=== PATIENT | male | born 1945 | race Caucasian/White ===

== ENCOUNTER → 2016-08-15 | Outpatient (CLI) | payer OTHER, BC ==
[2016-08-15 13:58] LABS: ALT/SGPT 31 U/L (12-78); BLOOD UREA NITROGEN 41 mg/dl (7-18); BUN/CREATININE RATIO 45.6 (10-20); CARBON DIOXIDE 22 mmol/L (21-32); CHLORIDE 107 mmol/L (98-107); CHOLESTEROL 175 mg/dl (0-200); GLUCOSE 146 mg/dl (70-99); SODIUM 139 mmol/L (136-145); TRIGLYCERIDES 97 mg/dl (0-150); VERY LOW DENSITY LIPOPROT CALC 19 mg/dl
[2016-08-15 14:02] LABS: ALB/GLOB RATIO 1.4 (0.9-2); ALKALINE PHOSPHATASE 71 U/L (45-117); AST/SGOT 17 U/L (15-37); CHOLESTEROL/HDL RATIO 3.4; HDL CHOLESTEROL 52 mg/dl; LDL CHOLESTEROL CALCULATED 104 mg/dl
[2016-08-15 14:12] LABS: ESTIMATED AVERAGE GLUCOSE 166 mg/dl; HA1C FLAG Normal (Normal)
[2016-08-15 15:10] LABS: CALCIUM 9.2 mg/dl (8.5-10.1)
== END | disposition home or self-care (01) ==
LOC: C.LABMFLN 08:44
PROVIDERS: ATTEND Family Medicine
DX: E11.40 Type 2 diabetes mellitus with diabetic neuropathy, unspecified (principal); E78.00 Pure hypercholesterolemia, unspecified; I10 Essential (primary) hypertension

== ENCOUNTER → 2016-12-23 | Outpatient (CLI) | payer OTHER, BC ==
[2016-12-23 13:52] LABS: BLOOD UREA NITROGEN 34 mg/dl (7-18); GLUCOSE 111 mg/dl (70-99)
[2016-12-23 13:53] LABS: ALT/SGPT 39 U/L (12-78); BUN/CREATININE RATIO 31.1 (10-20); CALCIUM 8.9 mg/dl (8.5-10.1); CARBON DIOXIDE 25 mmol/L (21-32); CHLORIDE 108 mmol/L (98-107); CHOLESTEROL < 50 mg/dl (0-200); POTASSIUM 4.9 mmol/L (3.5-5.1); SODIUM 139 mmol/L (136-145); TRIGLYCERIDES 76 mg/dl (0-150); URIC ACID 7.8 mg/dl (2.6-7.2); VERY LOW DENSITY LIPOPROT CALC 15 mg/dl
[2016-12-23 13:56] LABS: ALB/GLOB RATIO 1.2 (0.9-2); ALKALINE PHOSPHATASE 79 U/L (45-117); AST/SGOT 25 U/L (15-37); HDL CHOLESTEROL 54 mg/dl; RHEUMATOID FACTOR < 10.0 U/mL (0-15)
[2016-12-23 14:01] LABS: ESTIMATED AVERAGE GLUCOSE 163 mg/dl; HA1C FLAG Normal (Normal)
[2016-12-23 14:10] LABS: RATIO 5.4 mcg/mg (0-30.0)
[2016-12-23 14:27] LABS: BASO % 0.3 %; BASO ABS # 0.02 K/uL (0-0.2); COMPLETE YES; EOS % 4.1 %; IG% 0.2 %; LYMPH % 27.6 %; LYMPH ABS # 1.81 K/uL (1.2-3.4); MEAN CELL VOLUME 90.5 fL (80-100); MEAN CORPUSCULAR HEMOGLOBIN 31.3 pg (25-34); MEAN CORPUSCULAR HGB CONC 34.6 g/dl (32-36); MEAN PLATELET VOLUME 9.5 fL (7.4-10.4); MONO % 7.9 %; NEUT % 59.9 %; PLATELET COUNT 251 K/uL (130-400); RED BLOOD COUNT 4.09 M/uL (4.7-6.1); WHITE BLOOD COUNT 6.55 K/uL (4.8-10.8)
== END | disposition home or self-care (01) ==
LOC: C.LABMFLN 10:45
PROVIDERS: ATTEND Family Medicine
DX: E78.00 Pure hypercholesterolemia, unspecified (principal); E11.40 Type 2 diabetes mellitus with diabetic neuropathy, unspecified; I10 Essential (primary) hypertension; M25.50 Pain in unspecified joint; E11.69 Type 2 diabetes mellitus with other specified complication; E55.9 Vitamin D deficiency, unspecified; R97.20 Elevated prostate specific antigen [PSA]

== ENCOUNTER → 2017-05-20 | Outpatient (CLI) | payer OTHER, BC ==
[2017-05-20 13:20] LABS: HEMOGLOBIN A1C 7.8 % (4.5-5.6)
[2017-05-20 13:35] LABS: ALBUMIN 3.9 gm/dl (3.4-5.0); ALT/SGPT 35 U/L (12-78); BLOOD UREA NITROGEN 40 mg/dl (7-18); CALCIUM 9.1 mg/dl (8.5-10.1); CARBON DIOXIDE 24 mmol/L (21-32); CHOLESTEROL 180 mg/dl (0-200); CREATININE 0.95 mg/dl (0.60-1.40); GLUCOSE 125 mg/dl (70-99); POTASSIUM 5.2 mmol/L (3.5-5.1); SODIUM 137 mmol/L (136-145)
[2017-05-20 13:40] LABS: ALKALINE PHOSPHATASE 72 U/L (45-117); AST/SGOT 23 U/L (15-37); LDL CHOLESTEROL CALCULATED 112 mg/dl; TOTAL PROTEIN 7.4 gm/dl (6.4-8.2)
== END | disposition home or self-care (01) ==
LOC: C.LABMFLN 08:02
PROVIDERS: ATTEND Family Medicine
DX: E78.00 Pure hypercholesterolemia, unspecified (principal); R97.20 Elevated prostate specific antigen [PSA]; M10.9 Gout, unspecified; I10 Essential (primary) hypertension; E55.9 Vitamin D deficiency, unspecified; E11.40 Type 2 diabetes mellitus with diabetic neuropathy, unspecified

== ENCOUNTER → 2017-08-19 | Outpatient (CLI) | payer OTHER, BC ==
[2017-08-19 13:19] LABS: HEMOGLOBIN A1C 7.3 % (4.5-5.6)
[2017-08-19 13:30] LABS: BLOOD UREA NITROGEN 31 mg/dl (7-18); CARBON DIOXIDE 25 mmol/L (21-32); CREATININE 1.09 mg/dl (0.60-1.40); GLUCOSE 147 mg/dl (70-99); POTASSIUM 5.1 mmol/L (3.5-5.1); SODIUM 136 mmol/L (136-145); URIC ACID 5.9 mg/dl (2.6-7.2)
== END | disposition home or self-care (01) ==
LOC: C.LABMFLN 08:02
PROVIDERS: ATTEND Family Medicine
DX: E11.40 Type 2 diabetes mellitus with diabetic neuropathy, unspecified (principal); I10 Essential (primary) hypertension; M10.9 Gout, unspecified

== ENCOUNTER 2022-06-04 08:01 | Observation (INO) ==
--- NOTE | 2022-04-29 10:58 | PAT Medication Instructions ---
Medication Instructions Date of Service April 29, 2022 Home Medications Medication Instructions Recorded lisinopril 10 mg tablet 10 mg PO HS #90 tabs 04/20/21 atorvastatin 80 mg tablet See Rx Instructions PO HS #90 tabs 05/21/21 blood sugar diagnostic #100 ea 06/07/21 lancets (OneTouch UltraSoft #100 ea 06/07/21 Lancets) amoxicillin 500 mg tablet 2,000 mg PO ONCE #4 tabs 07/09/21 gabapentin 300 mg capsule 300 mg PO TID #270 caps 11/22/21 mineral oil (Fleet Mineral Oil 118 ml MO DAILY PRN constipation 01/17/22 enema) #133 mL finasteride 5 mg tablet 5 mg PO HS #90 tabs 02/21/22 metformin 500 mg tablet,extended 1,000 mg PO .COMPLEX #450 tabs 02/27/22 release 24 hr hydrocodone 10 mg-acetaminophen 1 tab PO Q4H PRN pain #100 tabs 02/28/22 325 mg tablet tamsulosin 0.4 mg capsule 0.4 mg PO QAM #90 caps 03/05/22 ezetimibe 10 mg tablet 10 mg PO HS #90 tabs 03/26/22 glimepiride 2 mg tablet 4 mg PO BID #360 tabs 04/15/22 aspirin 81 mg tablet 81 mg PO HS lisinopril 10 mg tablet 10 mg PO HS atorvastatin 80 mg tablet See Rx Instructions PO HS amoxicillin 500 mg tablet 2,000 mg PO ONCE gabapentin 300 mg capsule 300 mg PO TID acetaminophen 325 mg tablet 650 mg PO QID PRN Pain bisacodyl 5 mg tablet,delayed release 5 mg PO DAILY cholecalciferol (vitamin D3) 25 mcg (1,000 unit) capsule 25 mcg PO QAM docusate sodium 100 mg capsule 100 mg PO BID ferrous sulfate 325 mg (65 mg iron) tablet 325 mg PO BID polyethylene glycol 3350 17 gram/dose oral powder (Miralax) 17 g PO DAILY mineral oil (Fleet Mineral Oil enema) 118 ml MO DAILY PRN constipation finasteride 5 mg tablet 5 mg PO HS metformin 500 mg tablet,extended release 24 hr 1,000 mg PO .COMPLEX hydrocodone 10 mg-acetaminophen 325 mg tablet 1 tab PO Q4H PRN pain tamsulosin 0.4 mg capsule 0.4 mg PO QAM ezetimibe 10 mg tablet 10 mg PO HS glimepiride 2 mg tablet 4 mg PO BID clopidogrel 75 mg tablet 75 mg PO HS Continue as directed amoxicillin 500 mg tablet 2,000 mg PO ONCE (if needed- for prior to dental work) ASK your prescriber and surgeon clopidogrel 75 mg tablet 75 mg PO HS (in order for spinal anesthesia, clopidogrel/plavix needs to be stopped 7 days before surgery. Please check if okay with doctor that prescribes this to you) STOP taking 2 weeks before surgery (or as soon as possible if surgery is within 2 weeks) mineral oil (Fleet Mineral Oil enema) 118 ml MO DAILY PRN constipation DO NOT take the morning of surgery bisacodyl 5 mg tablet,delayed release 5 mg PO DAILY cholecalciferol (vitamin D3) 25 mcg (1,000 unit) capsule 25 mcg PO QAM docusate sodium 100 mg capsule 100 mg PO BID ferrous sulfate 325 mg (65 mg iron) tablet 325 mg PO BID polyethylene glycol 3350 17 gram/dose oral powder (Miralax) 17 g PO DAILY metformin 500 mg tablet,extended release 24 hr 1,000 mg PO .COMPLEX glimepiride 2 mg tablet 4 mg PO BID Take morning of surgery With a small sip of water, OTHERWISE NOTHING TO EAT OR DRINK AFTER MIDNIGHT: gabapentin 300 mg capsule 300 mg PO TID acetaminophen 325 mg tablet 650 mg PO QID PRN Pain (if needed) hydrocodone 10 mg-acetaminophen 325 mg tablet 1 tab PO Q4H PRN pain (if needed) tamsulosin 0.4 mg capsule 0.4 mg PO QAM Take evening before surgery aspirin 81 mg tablet 81 mg PO HS (continue as normal unless told otherwise by surgeon) lisinopril 10 mg tablet 10 mg PO HS atorvastatin 80 mg tablet See Rx Instructions PO HS gabapentin 300 mg capsule 300 mg PO TID acetaminophen 325 mg tablet 650 mg PO QID PRN Pain (if needed) docusate sodium 100 mg capsule 100 mg PO BID ferrous sulfate 325 mg (65 mg iron) tablet 325 mg PO BID finasteride 5 mg tablet 5 mg PO HS metformin 500 mg tablet,extended release 24 hr 1,000 mg PO .COMPLEX hydrocodone 10 mg-acetaminophen 325 mg tablet 1 tab PO Q4H PRN pain (if needed) ezetimibe 10 mg tablet 10 mg PO HS glimepiride 2 mg tablet 4 mg PO BID Other Notes If you have any questions please call us at [phone] or [phone] or [phone] or [phone]
--- NOTE | 2022-05-02 11:09 | Anesthesiology Consultation ---
Date of Service May 02, 2022 Assessment & Plan (1) Encounter for pre-operative examination: - awaiting PCP pre-op evaluation. - check BSG am DOS. - 8.4% A1c. Case discussed with Dr. Savage who advised patient have PCP pre-op evaluation for glycemic control optimization before elective surgery. Surgeon's office made aware, message left requesting pt return call. Workload note completed regarding elevated A1c and abnormal pre-op labs. - left leg traumatic injury 01/07/22, exam at 01/10/22 discharge summary "...Ext: multiple abrasions bilateral extremities..." Surgeon's office made aware. Chart Review Chart Review: Pending: Refer to Additional Notes / Consult section and Patient seen in Pre Admission Testing History Surgery Operation Date: 06/04/22 07:00 Proposed Procedures p Left Total Knee Arthroplasty - Terence Dhillon MD Height/Weight Height: 5 ft 10 in Weight: 83.915 kg Allergies Allergy/AdvReac Type Severity Reaction Status Date / Time No Known Drug Allergies Allergy Verified 04/29/22 07:53 Medications Home Medications Medication Instructions Recorded Confirmed Last Taken aspirin 81 mg tablet 81 mg PO HS 12/02/18 04/29/22 Unknown lisinopril 10 mg tablet 10 mg PO HS #90 tabs 04/20/21 04/29/22 Unknown atorvastatin 80 mg tablet See Rx Instructions PO HS #90 tabs 05/21/21 04/29/22 Unknown blood sugar diagnostic #100 ea 06/07/21 04/24/22 Unknown lancets (OneTouch UltraSoft #100 ea 06/07/21 04/24/22 Unknown Lancets) amoxicillin 500 mg tablet 2,000 mg PO ONCE #4 tabs 07/09/21 04/29/22 Unknown gabapentin 300 mg capsule 300 mg PO TID #270 caps 11/22/21 04/29/22 Unknown acetaminophen 325 mg tablet 650 mg PO QID PRN Pain 01/14/22 04/29/22 Unknown bisacodyl 5 mg tablet,delayed 5 mg PO DAILY 01/14/22 04/29/22 Unknown release cholecalciferol (vitamin D3) 25 25 mcg PO QAM 01/14/22 04/29/22 Unknown mcg (1,000 unit) capsule docusate sodium 100 mg capsule 100 mg PO BID 01/14/22 04/29/22 Unknown ferrous sulfate 325 mg (65 mg 325 mg PO BID 01/14/22 04/29/22 Unknown iron) tablet polyethylene glycol 3350 17 17 g PO DAILY 01/14/22 04/29/22 Unknown gram/dose oral powder (Miralax) mineral oil (Fleet Mineral Oil 118 ml DE DAILY PRN constipation 01/17/22 04/29/22 Unknown enema) #133 mL finasteride 5 mg tablet 5 mg PO HS #90 tabs 02/21/22 04/29/22 Unknown metformin 500 mg tablet,extended 1,000 mg PO .COMPLEX #450 tabs 02/27/22 04/29/22 Unknown release 24 hr hydrocodone 10 mg-acetaminophen 1 tab PO Q4H PRN pain #100 tabs 02/28/22 04/29/22 Unknown 325 mg tablet tamsulosin 0.4 mg capsule 0.4 mg PO QAM #90 caps 03/05/22 04/29/22 Unknown ezetimibe 10 mg tablet 10 mg PO HS #90 tabs 03/26/22 04/29/22 Unknown glimepiride 2 mg tablet 4 mg PO BID #360 tabs 04/15/22 04/29/22 Unknown clopidogrel 75 mg tablet 75 mg PO HS 04/29/22 04/29/22 Unknown Past Medical History Medical History (Updated 05/02/22 @ 15:39 by Megan Laurent PA-C) Benign essential hypertension controlled, stable per pt Blood loss anemia BPH (benign prostatic hyperplasia) Chronic low back pain Chronic narcotic use 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 Exercise / Class Metabolic Activity II 4-5 Yardwork/Stairs/Walk up hill (denies CP or SOB with 1 FOS) Past Family History Family History Brother Diabetes Father Stomach cancer Other No family history of adverse response to anesthesia Past Surgical History Surgical History H/O arthroscopic knee surgery RT/LEFT H/O prostate biopsy benign History of atherectomy Atherectomy/MOTEL KEEPER of the 90% left peroneal artery occlusion Attempted MOTEL KEEPER of the 100% left MOTEL KEEPER occlusion, however could not reach distally Patient will continue with current medical treatment plan and follow up closely with physician History of carpal tunnel release RT/LEFT History of colonoscopy History of inguinal hernia repair History of tooth extraction History of total knee replacement RT Past Anesthesia History No Hx of Anesthesia Complications and No Family Hx of Anesthesia Complications History of PONV No Hx of PONV and No Hx of Motion Sickness Social History Smoking Status: Never smoker Do You Dip or Chew Tobacco: No Hx Alcohol Use: No Hx Substance Use: No substance use type: does not use Review of Systems Patient denies chest pain, shortness of breath, dyspnea on exertion, snoring, witnessed apneas, reflux, fever, chills, cough, wheezing, or palpitations. Physical Exam Vital Signs Vitals BP 142/92 P 60 TEMP 97.8 SP02 99% on RA RESP 17 Physical Full cervical extension range of motion without pain TMD 3.5 finger breadths Mallampati Score 2 Dentition: partial upper denture; denies chipped or loose teeth, implants or bridges Lungs: normal respiratory effort. Clear throughout to auscultation, no adventitious breath sounds Cardiac: regular rate and rhythm, no murmurs noted Carotid arteries: negative bruit bilat Lab Results Anesthesia Preop Results Results Anesthesia Widget: WBC 6.00 K/ul (4.8-10.8) 05/02/22 Hgb 11.6 g/dl (14.0-18.0) L 05/02/22 Hct 35.1 % (40.1-51.0) L 05/02/22 Plt 231 K/uL (130-400) 05/02/22 Na 140 mmol/L (136-145) 04/24/22 K 4.5 mmol/L (3.5-5.1) 04/24/22 Cl 109 mmol/L (98-107) H 04/24/22 CO2 24 mmol/L (21-32) 04/24/22 BUN 31 mg/dl (6-23) H 04/24/22 Creat 1.17 mg/dl (0.6-1.4) 04/24/22 Glucose Level 143 mg/dl (70-99(Fasting)) H 04/24/22 PT 11.3 Seconds (9.0-12.0) 04/24/22 PTT 29.6 Seconds (21.0-31.0) 04/24/22 INR 1.1 (0.9-1.1) 04/24/22 HA1c 8.4 % (4.5-5.6) H 04/24/22 Urine Color Yellow 04/24/22 Urine Appearance Clear (Clear) 04/24/22 Urine pH 5.0 (4.5-7.5) 04/24/22 Urine Specific [place] 1.022 (1.000-1.030) 04/24/22 Urine Protein Negative (Negative) 04/24/22 Urine Glucose (UA) Negative (Negative) 04/24/22 Urine Ketones Negative (Negative) 04/24/22 Urine Blood Negative (Negative) 04/24/22 Urine Nitrite Negative (Negative) 04/24/22 Urine Bilirubin Negative (Negative) 04/24/22 Urine Urobilinogen Negative (Negative) 04/24/22 Urine Leukocyte Esterase Negative (Negative) 04/24/22 Blood Type O Positive 05/02/22 Antibody Screen NEGATIVE 05/02/22 Testing Laboratory Results Surgeon's office made aware of elevated A1c at 8.4%. Electrocardiogram Date: 01/09/22 NSR, rate 75 bpm Incomplete RBBB Chest X-Ray Date: 05/02/22 No pneumothorax. No pleural effusions. A few left basilar linear densities favor subsegmental atelectasis. Otherwise, the lungs are clear. The heart is normal in size. No evidence for pulmonary edema. There are calcifications within the aortic knob. There are old, healed left lower rib fractures again noted. IMPRESSION: No significant change compared to the prior study. No acute process. Echocardiogram Date: 11/22/19 EF 65% Grade I diastolic dysfunction Normal LV wall motion No significant valvular abnormalities Stress Test Date: 06/15/19 Pharmacologic MPHR not reported Abnormal-fixed perfusion defect likely related to diaphragmatic attenuation in the inferior segments. Stress EKG test results normal EF 60-65% Other Testing LLE duplex 01/15/22 No evidence of acute DVT Complex cystic mass demonstrated in the left popliteal fossa, measuring 2.8 cm x 1.[address] neck 01/10/22 Probable air-filled Zenker diverticulum. Upper aerodigestive tract is patent CT abdomen pelvis 01/10/22 Nondisplaced acute left 8th rib fracture, no pneumothorax No acute traumatic changes within the abdomen and pelvis Chest CTA 01/09/22 No evidence of PE within the limitations of suboptimal bolus timing Small pleural effusions and mild bibasilar atelectasis COVID-19 Risk Screen Screening Information COVID-19 Screen Date: 05/02/22 Exposure 21 Days Family/Household +COVID Last 21 Days: No Exposure 10 Days Any COVID Exposure Last 10 Days: No Symptoms Last 10 Days Experienced COVID Sx Last 10 Days: No + COVID 0-90 Days COVID + in Last 0-90 Days: No
--- NOTE | 2022-06-01 18:34 | History and Physical Report ---
DATE OF ADMISSION: 06/04/2022 CHIEF COMPLAINT: Persistent left knee pain. 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 He has got a long history of knee problems. Had his right knee replaced by Dr Eladio San in [place] 7 years ago. He has done okay with this, but is having some persistent pain. He continues to be limited by left knee pain. We saw him and treated him conservatively. He is cont inued to be limited by pain. I thought there was a significant vascular component to his problem and he did go see the vascular surgery. He has had some intervention, which really has not helped that much. He has been optimized from that standpoint. He would like to have his knee replaced. PAST MEDICAL HISTORY: Significant for: 1. Diabetes x3 years. 2. Elevated cholesterol. 3. Peripheral vascular disease. 4. Underlying neuropathy. 5. Enlarged prostate. PAST SURGICAL HISTORY: Includes: 1. Right knee replacement 7 years ago. 2. Incarcerated ____ hernia surgery. 3. Bilateral carpal tunnel release. ALLERGIES: None. CURRENT MEDICATIONS: Include: 1. Tylenol. 2. Amoxicillin. 3. Aspirin. 4. Atorvastatin. 5. Vitamin D3. 6. Iron. 7. Ezetimibe. 8. Colace. 9. Plavix. 10. Finasteride. 11. Gabapentin. 12. Glimepiride. 13. Hydrocodone. 14. Metformin. 15. Lisinopril. 16. Mineral oil. 17. MiraLax. 18. Tamsulosin. SOCIAL HISTORY: A 76-year-old male. 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 Lives in [place]. FAMILY HISTORY: Noncontributory. REVIEW OF SYSTEMS: Significant for peripheral vascular disease as described above. He has got chron ic back problems. No chest pain or shortness of breath. No history of DVT or PE. PHYSICAL EXAMINATION: GENERAL: Shows a pleasant, elderly male. Looks to be in pretty good health. HEENT: Benign. NECK: Supple. No lymphadenopathy. LUNGS: Clear to auscultation. HEART: Regular rate and rhythm. ABDOMEN: Soft, nontender, nondistended. EXTREMITIES: Grossly neurovascularly intact except as follows: Examination of the left knee reveals the patient ambulates independently. He has got varus alignment to his knee. He has got bony hyper trophy medially and some tenderness medially. Range of motion 5-120. No instability. He does have a good dorsalis pedis pulse. There is some chronic venous insufficiency, but no open wounds. X-RAYS: X-rays of the left knee are reviewed. It shows advanced left knee medial compartment DJD. He has got complete loss of his medial joint space. He has got subchondral sclerosis. ASSESSMENT: 1. A 76-year-old male with multiple medical comorbidities including diabetes. 2. Elevated cholesterol. 3. Peripheral vascular disease. 4. Underlying neuropathy with advanced left knee degenerative joint disease. He does have periphera l vascular disease, which has been optimized. He continues to be limited by pain and would like to h ave his knee replaced. PLAN: We are going to take him to the operating room and do a left knee replacement. We are going t o avoid using a tourniquet due to his peripheral vascular disease. I did tell him there is no guaran nona this is going to help him, and he understands and would like to proceed. I do think still some o f his pain is coming from his vascular status. We will proceed with knee replacement. The risks and benefits were explained. He does have diabetes , which has been intermittently poorly controlled, but better recently and he is working hard to Pro Breath MD. He is planning to be discharged to home using [facility] program. He knows to hold his Plavix 7 days preop and metformin and lisinopril on the morning of surgery. Job ID: [id number]
[~2022-06-04 08:01] MED LIST: ACETAMINOPHEN 500 MG TAB PO SCH; BUPIVACAINE 0.5 % 5 MG/1 ML PF 10ML VIAL ONE; BUPIVACAINE LIPOSOME/PF 266 MG, BUPIVACAINE/EPINEPHRINE 50 ML, SODIUM CHLORIDE 0.9% 30 ... INFIL SCH; CeleBREX 200 MG CAP PO SCH; FAMOTIDINE 20 MG TAB PO SCH; LR 500ML BOLUS, THEN 15ML/HR IV SCH; LR 60ML/HR IV SCH; METOCLOPRAMIDE HCL 10 MG TABLET PO SCH; ROPIVACAINE 0.5% 5 MG/ML 30 ML VIAL ONE; TRANEXAMIC ACID 1,000 MG **IV Intra-op IV SCH; ceFAZolin 2000MG 2,000 MG/15 ML SYR IV SCH
--- NOTE | 2022-06-04 08:53 | History & Physical Bridge Note ---
Date of Service June 04, 2022 History & Physical Bridge Note I have examined the patient, reviewed the History & Physical and in the interval since the performance of the History & Physical I have noted the following changes of clinical significance: no changes noted
[2022-06-04] MEDS ORDERED: MIDAZOLAM HCL 1 MG/ML 2ML VIAL ONE (09:55)
[2022-06-04] MEDS ORDERED: fentaNYL citrate 100 MCG/2 ML VIAL ONE (09:55)
[2022-06-04] MEDS ORDERED: ONDANSETRON INJ 2 MG/ML 2 ML VIAL IV PRN ×2 (10:17→15:05)
[2022-06-04] MEDS ORDERED: ePHEDrine sulfate 50 MG/ML AMP IV PRN (10:17)
[2022-06-04] MEDS ORDERED: fentaNYL citrate 100 MCG/2 ML VIAL IV PRN (10:17)
[2022-06-04] MEDS ORDERED: ATROPINE SULFATE 0.1 MG/ML 10ML SYR IV PRN (10:17)
[2022-06-04] MEDS ORDERED: HYDROmorphone INJ 2 MG/ML SYR/VIAL IV PRN (10:17)
[2022-06-04] MEDS ORDERED: PROMETHAZINE HCL 12.5 MG in SODIUM CHLORIDE 0.9% 50 ML IV PRN (10:17)
[2022-06-04] MEDS ORDERED: BUPIVACAINE/EPINEPHRINE 0.25% 1:200,000 30 ML VIAL ONE (10:57)
[2022-06-04] MEDS ORDERED: SODIUM CHLORIDE 0.9% PF 50 ML VIAL ONE (10:57)
[2022-06-04] MEDS ORDERED: BUPIVACAINE LIPOSOME 1.3% 266 MG/20 ML VIAL ONE (10:57)
[2022-06-04] MEDS ORDERED: VANCOMYCIN HCL 1000MG/20ML VIAL ONE (10:59)
[2022-06-04] MEDS ORDERED: PROPOFOL IV EMULSION 10 MG/ML 20 ML VIAL IV ONE (11:57)
[2022-06-04] MEDS ORDERED: ePHEDrine sulfate 50 MG/ML AMP ONE (11:57)
[2022-06-04] MEDS ORDERED: ONDANSETRON INJ 2 MG/ML 2 ML VIAL ONE (11:57)
[2022-06-04] MEDS ORDERED: GLYCOPYRROLATE 0.2 MG/ML VIAL ONE (12:14)
--- NOTE | 2022-06-04 13:13 | Operative Report ---
PG Post Operative Report Pre & Post Diagnosis Operation Date: 06/04/22 10:40 Pre-Op Diagnosis: Left Knee Denergative Joint Disease Post-Op Diagnosis: Left Knee Degenrative Joint Disease I identified the patient and participated in the time-out.: Yes Procedure Operation Date: 06/04/22 10:40 Actual Procedures p Left Total Knee Arthroplasty(Left) - Terence Dhillon MD Surgeon Terence Dhillon MD Project Systems Engineer Yasmany Rosa PA-C Estimated Blood Loss 150 Findings Consistent with Post-Op Diagnosis Operative findings were advanced left knee DJD. Extensive grade 4 [id number] disease of the medial compartment. Fixed deformity to his knee and about 10 degree flexion contracture. His knee was fairly stiff with only about 90 degrees of knee flexion. 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 He had his right knee replaced by Dr. Martin about 7 years ago. Over the past several years he developed increased pain discomfort in his left knee. Is been through extensive conservative treatment. We did send him to the vascular surgeon they did some interventions to improve his blood supply of the leg. He continued be bothered by pain discomfort and limited walking ability. He elected proceed with total knee arthroplasty. We did not use a tourniquet for this procedure due to his vascular status and history of vascular intervention. Description of Procedure Operative implants consist of: 1 Biomet Vanguard size 72.5 left posterior stabilized femoral component. 2. Biomet size 79 tibial tray. 3. 10 mm posterior stabilized polyethylene insert. 4. 34 x 8 and half all Paller patella. The patient was taken to the operating, identified, and placed on the operating table supine position but all contact areas were properly padded. IV antibiotics tried by anesthesia team. A spinal anesthetic and abductor canal block had been provided in the holding area. Helm catheter was placed in sterile fashion. Left thigh tent was then placed in the left lower extremities then prepped and draped in usual sterile fashion. The tourniquet was not used due to his history of peripheral vascular disease and disease/vascular intervention. An anterior approach left knee was then performed to longitudinal incision centered over the patella. Sharp dissection was carried through subcutaneous tissue down to the extensor mechanism. A medial parapatellar arthrotomy incision was made. Some subperiosteal dissection was carried out medially. The fat pad was resected from Neath patella tendon. Lateral patellofemoral ligament was released. Patella subluxated laterally and the knee was flexed. The osteophytes taken off distal femur. The ACL and PCL were then released from distal femur the tibia subluxated anteriorly. The external tibial alignment jig was then placed in the interface the tibia and adjusted 14 mm medially. Proximal tibial cut was made remove about a millimeter bone from most deficient aspect the medial tibial plateau. Some osteophytes taken off medial and posterior medially. Tibia sized to a size 79. Attention drawn the femur. The distal femur. The sharp drop with intramedullary canal was suction. A left 6 degree valgus cutting guide was placed. Distal femoral cutting block was pinned in place. Distal femoral cut was made to take an additional 3 mm bone off distal femur. The femur was then sized to a size 72.5. The AP cutting block was pinned parallel to the epicondylar axis which was 7 degrees of external rotation. Anterior cut, anterior chamfer, posterior cut, posterior chamfer cuts were made. The box cutting guide was placed in just slight lateral and the box cut was made. The knee was flexed. The remnants of the medial and lateral menisci were excised. The osteophytes were taken off the posterior aspect the femur. A trial femoral component was placed. Tibial tray was pinned in maximum external rotation and the drill and stem punch used to create defect in proximal tibia for the tibial tray. The knee was then trialed and 10 mm insert fit most appropriately. Attention drawn the patella. The patella was cleaned of all soft tissues. Patella thickness measured 23 mm in thickness was cut down to 14. It was sized to a size 34 patella. The lug holes were drilled for 34 patella. Lateral osteophytes removed. Patella button was placed. Knee was taken through range of motion and the patella tracked nicely with no thumbs test. Attention drawn to placing permanent components. Nupathe all trial components were removed. Bone plug was placed in the distal femur limit blood loss. Double batch Palacos G cement was mixed. I did add an additional gram of vancomycin due to his multiple medical comorbidities and history of peripheral vascular disease. A BiomFidelis SeniorCareguard size 72.5 left posterior stabilized femoral component, size 79 tibial tray, a 10 mm posterior stabilized polyethylene insert, and a 34 x 8 and half all Paller patella then cemented in place. The knee was brought out into full extension until cement hardened. Final cement check was then performed. Pericapsular tissues were injected with a total of 100 cc of combination of 20 cc of Exparel, 30 cc normal saline, 50 cc of quarter percent Marcaine with epinephrine. Patient did receive 1 g tranexamic acid. The extensor mechanism then closed with combination 1 PDS suture #1 Vicryl suture in a [id number] fashion. Extensor mechanism checked found to be intact and subcutaneous tissue then closed with 2 Dexon suture in a buried interrupted fashion skin was closed skin birgit. Leg was then cleaned and dried and sterile dressing was Xeroform, 4 x 4's, sterile cast padding, Griffin bandage were applied. Patient then transferred to the recovery room in stable condition. Patient tolerated procedure well and there were no complications. Yasmany Rosa, my physician zoning assistant, was present for the entire procedure. His assistance was essential and required for appropriate patient positioning, prepping and draping, surgical exposure, performing the technical details of the operation, placement the implants, closure of the wound, and placement of the sterile bandage. I attest to the content of the Intraoperative Record and any orders documented therein. Any exceptions are noted below.
--- NOTE | 2022-06-04 13:33 | XRay Report ---
LEFT KNEE 2 VIEWS History: Left total knee arthroplasty. Degenerative arthritis. Postop. FINDINGS: The patient is status post a left total knee arthroplasty. The hardware is intact. No fract ure or dislocation. Skin birgit are in place. IMPRESSION: Left total knee arthroplasty. No evidence for hardware complication. ACT 112: Negative or not required by law. Electronically signed by: Tao Bull M.D. 06/04/2022 1:32 PM
--- NOTE | 2022-06-04 13:55 | Anesthesiology Progress Note ---
Date of Service June 04, 2022 Anesthesia Post Procedure Vital Signs Vital Signs: Temp Pulse Pulse Resp BP Pulse Ox O2 Del Method 06/04/22 13:45 54 L 16 104/51 L 94 Room Air 06/04/22 13:35 56 L 11 L 105/50 L 94 Room Air 06/04/22 13:25 51 L 14 105/49 L 99 Oxymask 06/04/22 13:15 55 L 12 108/49 L 96 Oxymask 06/04/22 13:07 36.2 C L 63 14 94/47 L 96 Oxymask 06/04/22 08:35 36.4 C L 55 L 18 165/74 H 100 Room Air O2 Flow Rate 06/04/22 13:45 06/04/22 13:35 06/04/22 13:25 5 06/04/22 13:15 5 06/04/22 13:07 5 06/04/22 08:35 Transfer of Care Handoff Completed per policy Notes Mental Status: alert / awake / arousable Patient Amnestic to Procedure: Yes Nausea / Vomiting: adequately controlled Pain: adequately controlled Airway Patency, RR, SpO2: stable & adequate BP & HR: stable & adequate Hydration State: stable & adequate Neuraxial Anesthesia: was administered and sensory block is resolving Anesthetic Complications: no major complications apparent and Pt Satisfied with anesthetic care
[2022-06-04] MEDS ORDERED: MINERAL OIL ENEMA 133 ML BTL PR PRN (15:05)
[2022-06-04] MEDS ORDERED: ALUMINUM/MAGNESIUM SUSP 30 ML UDC PO PRN (15:05)
[2022-06-04] MEDS ORDERED: oxyCODONE HCL IR 5 MG TAB (IMMEDIATE RELEASE) PO PRN (15:05)
[2022-06-04] MEDS ORDERED: HYDROmorphone INJ 0.5 MG/0.5 ML SYR IV PRN (15:05)
[2022-06-04] MEDS ORDERED: bisacodyL 10 MG SUPP PR PRN (15:05)
[2022-06-04] MEDS ORDERED: NALOXONE HCL 0.4 MG/1 ML VIAL/CARP IV PRN (15:05)
[2022-06-04] MEDS ORDERED: NON-FORMULARY MEDICATION (Amoxicillin 500 mg tablet) PO SCH (15:05)
[2022-06-04] MEDS ORDERED: METOCLOPRAMIDE HCL INJ 5 MG/ML 2 ML VIAL IV PRN (15:05)
[2022-06-04] MEDS ORDERED: PHARMACY GLYCEMIC MGMT CONSULT PRN (15:05)
[2022-06-04] MEDS ORDERED: MAGNESIUM HYDROXIDE SUSP 30 ML UDC PO PRN (15:05)
[2022-06-04] MEDS: SODIUM CHLORIDE 0.9% 1000ML 1,000 ML IV SCH (15:35)
[2022-06-04] MEDS: GABAPENTIN 300 MG CAP PO SCH ×2 (16:15→19:51)
[2022-06-04] MEDS: ACETAMINOPHEN 500 MG TAB PO SCH ×2 (16:16→21:25)
[2022-06-04] MEDS: KETOROLAC TROMETHAMINE 15 MG/ML VIAL IV SCH ×2 (16:17→21:26)
[2022-06-04] MEDS ORDERED: GLUCOSE 10 TAB/TUBE PO PRN (16:45)
[2022-06-04] MEDS ORDERED: CARBOHYDRATES FOR HYPOGLYCEMIA PO PRN (16:45)
[2022-06-04] MEDS ORDERED: GLUCOSE 40% GEL 15 GM TUBE PO PRN (16:45)
[2022-06-04] MEDS ORDERED: DEXTROSE 50% 50 ML SYRINGE IV PRN (16:45)
[2022-06-04] MEDS ORDERED: GLUCAGON FOR INJ 1 MG VIAL IM PRN (16:45)
[2022-06-04] MEDS: INSULIN ASPART PER UNIT SC SCH ×2 (17:38→21:15)
[2022-06-04] MEDS: ASCORBIC ACID 500 MG TAB PO SCH (17:45)
[2022-06-04] MEDS: ceFAZolin 2000MG 2,000 MG/15 ML SYR IV SCH (17:46)
[2022-06-04] MEDS ORDERED: TRANEXAMIC ACID / 0.7% NACL 1,000 MG/100 ML BAG IV SCH (19:15)
[2022-06-04] MEDS: DOCUSATE SODIUM 100 MG CAP PO SCH (19:50)
[2022-06-04] MEDS: DOCUSATE SODIUM/SENNA 50/8.6MG TAB PO SCH (19:52)
[2022-06-04] MEDS: FERROUS SULFATE 325 MG TAB PO SCH (19:53)
[2022-06-04] MEDS ORDERED: ASPIRIN 81 MG ECTAB PO SCH (21:00)
[2022-06-04] MEDS ORDERED: FINASTERIDE 5 MG TAB PO SCH (21:00)
[2022-06-04] MEDS ORDERED: DOCUSATE SODIUM 100 MG CAP PO SCH (21:00)
[2022-06-04] MEDS ORDERED: GLIMEPIRIDE 2 MG TAB PO SCH (21:00)
[2022-06-04] MEDS ORDERED: SENNA 8.6 MG TAB PO SCH (21:00)
[2022-06-05] MEDS: ceFAZolin 2000MG 2,000 MG/15 ML SYR IV SCH (03:19)
[2022-06-05] MEDS: KETOROLAC TROMETHAMINE 15 MG/ML VIAL IV SCH ×2 (03:20→07:42)
[2022-06-05] MEDS: SODIUM CHLORIDE 0.9% 1000ML 1,000 ML IV SCH (03:20)
[2022-06-05] MEDS ORDERED: INSULIN ASPART PER UNIT SC SCH (04:00)
[2022-06-05] MEDS: ACETAMINOPHEN 500 MG TAB PO SCH ×2 (06:08→14:41)
[2022-06-05 06:58] LABS: Hematocrit (blood only) 32.9 % (42.0-52.0); Mean Corpuscular Hemoglobin 30.3 pg (25.0-34.0); Mean Corpuscular Hgb Conc 33.4 g/dL (32.0-36.0); Mean Corpuscular Volume 90.6 fL (80.0-100.0); Mean Platelet Volume 9.9 fL (9.4-12.4); Platelet Count 191 K/uL (130-400); RDW Standard Deviation 42.9 fL (36.4-46.3); Red Blood Count 3.63 M/uL (4.70-6.10); White Blood Count 6.76 K/ul (4.8-10.8)
[2022-06-05 07:24] LABS: BUN Creatinine Ratio 20.5 (10-20); Calcium 8.4 mg/dl (8.5-10.1); Creatinine Clr Calc Pharmacy 43.8 ml/min; Est GFR (Non-African American) 45.7 ml/min; Potassium 4.4 mmol/L (3.5-5.1)
[2022-06-05] MEDS: DOCUSATE SODIUM/SENNA 50/8.6MG TAB PO SCH (07:41)
[2022-06-05] MEDS: FERROUS SULFATE 325 MG TAB PO SCH (07:41)
[2022-06-05] MEDS: ASCORBIC ACID 500 MG TAB PO SCH (07:41)
[2022-06-05] MEDS: GABAPENTIN 300 MG CAP PO SCH ×2 (07:41→14:40)
[2022-06-05] MEDS: DOCUSATE SODIUM 100 MG CAP PO SCH (07:42)
[2022-06-05] MEDS: INSULIN ASPART PER UNIT SC SCH ×2 (08:28→12:27)
[2022-06-05] MEDS ORDERED: bisacodyL 5 MG TABEC PO SCH (09:00)
[2022-06-05] MEDS ORDERED: MULTIVITAMIN TAB PO SCH (09:00)
[2022-06-05] MEDS ORDERED: CHOLECALCIFEROL 1,000 UNITS 25 MCG TAB PO SCH (09:00)
[2022-06-05] MEDS ORDERED: POLYETHYLENE (MIRALAX) 17 GM PACK PO SCH (09:00)
[2022-06-05] MEDS ORDERED: TAMSULOSIN HCL 0.4 MG CAP PO SCH (09:00)
--- NOTE | 2022-06-05 10:17 | Pharmacy Report ---
Pharmacy Glycemic Short Note 2 - Date of Service June 05, 2022 - Glycemic Short BSG Results (Last 24 hours): 06/04/22 06/04/22 06/04/22 13:09 17:02 20:32 Glucose POC Glucose 121 H 87 78 06/05/22 06/05/22 06/05/22 03:12 06:18 07:59 Glucose 167 H POC Glucose 171 H 164 H OUTPATIENT ANTIDIABETIC REGIMEN: * Metformin ER 500 mg- 2 tablets QAM, 1 tablet at lunch time, 2 tablets QPM * Glimepiride 4 mg BID ASSESSMENT: * Davie Rios is a 76-year-old T2DM patient who presents as post-op from total knee replacement. Patient did not receive any steroids prior to surgery and is currently not ordered any steroids post-op. Most recent A1C was 8.4% from 04/24/22, and manages diabetes outpatient with only oral agents (glimepiride 4 mg BID, Metformin ER 2,500 mg daily). Patient is currently ordered a T2DM carb consistent diet. * Patient has not required any basal insulin so far; patient received 2 units of bolus insulin yesterday (06/04/22) and 11 units of insulin so far today. PLAN FOR INPATIENT GLYCEMIC CONTROL: * Hold outpatient oral diabetes medications * Basal insulin * Initially held off on basal insulin due to BSG of 78 mg/dL yesterday (06/04/22). * BSG's started to trend up and a one time dose of Lantus 15 units was ordered for today (06/05/22) at lunch time. * Bolus insulin * NovoLog per scale ACHS or Q6hrs while NPO * Goal Range: Low 110 mg/dL - High 140 mg/dL * Correction Factor: 30 mg/dL/unit * Nutritional / Prandial insulin per carb ratio of 1 unit per 10 grams CHO consumed
[2022-06-05] MEDS ORDERED: LANTUS PER UNIT CHARGE SQ ONE (12:15)
--- NOTE | 2022-06-05 15:42 | Progress Notes ---
DATE OF SERVICE: 06/05/2022. SUBJECTIVE: A 76-year-old gentleman postoperative day 1 from a left knee replacement. He is doing p retty well. Pain is controlled. Denies any chest pain or shortness of breath. Not feeling dizzy or lightheaded. Hoping to go home. OBJECTIVE: VITAL SIGNS: Temperature 36.5. Vital signs are stable. GENERAL: Shows a pleasant, elderly male, sitting at bedside chair, looks dressed and ready to go. LUNGS: Clear to auscultation. HEART: Has regular rate and rhythm. ABDOMEN: Soft, nontender, nondistended. EXTREMITIES: Grossly neurovascularly intact except as follows. Examination of the left leg reveals the leg to be well aligned. Dressing is clean, dry and intact. He can dorsiflex and plantarflex his foot appropriately. He is neurologically intact. LABORATORY DATA: Hemoglobin 11.0. Hematocrit 32.9. Electrolytes are stable. ASSESSMENT: A 76-year-old gentleman postoperative day 1 from a left knee replacement, doing pretty w ell. His pain is controlled. Therapy went well. He is really hoping to go home. PLAN: 1. DVT prophylaxis includes thigh-high TEDs, SCDs and back on his Plavix and he is on a baby aspirin once a day. 2. PT/OT, weightbear as tolerated. Left total knee protocol. 3. Pain control, doing okay with current pain regimen. 4. Disposition: Plan to discharge to home with some home health later today. Job ID: [id number]
[2022-06-05] MEDS ORDERED: CLOPIDOGREL BISULFATE 75 MG TAB PO SCH (21:00)
== END 2022-06-05 16:25 | disposition home health service (06) ==
LOC: 3E 08:01 → ASU 08:01